=== PATIENT | male | born 1980 | race Two or more races ===

== ENCOUNTER 2024-12-17 08:02 | Emergency (ER) | payer MEDICAID, SELFPAY ==
--- NOTE | 2024-12-17 08:14 | EDNOTE_ITS ---
ED General RME/HPI General Chief complaint: Psychiatric Symptoms Stated complaint: HOLD, MENTAL EVAL Time Seen by Provider: 12/17/24 08:03 Arrival date/time: 12/17/24 08:02 RME / HPI RME / HPI narrative: Patient is 44 years old male with past medical history of previous suicidal attempts who presented to the ED after he called 911 and reported that he wants to kill himself. He did not attempt suicide or injured himself but planned to cut his wrists. Patient reports he is feeling depressed, lonely and today woke up with thoughts of hurting himself. He reports he is living with his cat and dog. He reports hearing voices, mostly of famous people in his head. He denies visual or other hallucinations. He reports episodes when he had a lot of ideas and was not able to sleep for several days. He denies any drug use, drink alcohol or smoking tobacco. Previous suicide attempt was through cutting his left wrist. Related Data Previous Rx's ?Medication ?Instructions ?Recorded hydroxyzine HCl 50 mg tablet 50 mg PO TID PRN anxiety #30 tabs 03/21/24 Allergies Allergy/AdvReac Type Severity Reaction Status Date / Time Penicillins Allergy Severe Difficulty Verified 03/21/24 16:18 Breathing Review of Systems Review of Systems Systems Reviewed: All systems reviewed, normal except as documented ED Exam Narrative Physical exam: Gen: Well-developed and well-nourished male, cooperative. HEENT: NCAT, PERRLA, EOMI, MMM, anicteric conjunctivae. CVS: normal S1 and S2. RRR. No M/R/G. Resp: CTA B/L. No rhonchi, rales, crackles or wheezing. Abd: soft, obese, non-tender, non-distended. BS+ in all 4 quadrants. MSK: Good ROM in BUE & BLE. No edema or rash. Old well-healed scar on the left wrist from prior suicide attempt. Neuro: CN II-XII grossly intact. Strength 5/5 in BUE & BLE. Alert and oriented x3. Psych: Appears depressed. Course Quality Measures none Orders Category Date Time Status 179 Psychiatric Hold NOW Care 12/17/24 08:30 Ordered Diet Regular Diet 12/17/24 Lunch Active Alcohol, Blood Medical Stat Lab 12/17/24 09:44 Completed CBC Stat Lab 12/17/24 09:44 Completed Comprehensive Metabolic Panel Stat Lab 12/17/24 09:44 Completed Drug Screen,Urine Stat Lab 12/17/24 08:52 Completed Urinalysis Stat Lab 12/17/24 08:52 Completed Vital Signs Vital signs: Vital Signs Temperature 99.0 F 12/17/24 08:17 Pulse Rate 84 12/17/24 08:17 Respiratory Rate 18 12/17/24 08:17 Blood Pressure 141/95 H 12/17/24 08:17 Pulse Oximetry (%) 96 12/17/24 08:17 Oxygen Delivery Method Room Air 12/17/24 08:17 MDM Patient data External records reviewed:: [facility] previous records and EMS form Clinical information provided by:: patient and EMS Social determinants that could affect healthcare access:: mental health Patient has the following chronic illnesses:: previous suicidal attempts How is presenting disease/condition affected by chronic disease/condition?: e xacerbated by Evaluation data The following diagnostics were reviewed and interpreted by me:: lab results Lab and/or radiology exams considered but not ordered:: CXR, EKG Interpretation Summary: no acute abnormalities Medications Medications considered but not ordered:: none Medication administrations:: none Consultations Consultation(s) initiated? (list below): No Diagnosis Differential Diagnosis ED Complaint MDM: schizophrenia, depression, bipolar disorder, drug use Most likely diagnosis given after review of the tests above:: Bipolar disorder Admission Indicated Admission indicated?: indicated Explain why admission is indicated or not indicated:: Patient is suicidal, however [facility] does not have psychiatry services, transfer was initiated. Admission Request Was there a request for admission?: No Disposition Plan Disposition Plan: Transfer Medical Decision Making MDM Narrative MDM Narrative: jmk>>> patient 44-year-old who presents with suicidal thoughts considering slicing his left wrist but did not take action. Did not take any pills or medications. Patient was medically evaluated and cleared had a normal CBC and CHEM panel and both urine and drug screens were negative. health services coordinator evaluated this patient and made arrangements to 5150 him and patient was accepted to [facility] was transferred by ambulance. Patient was called in the emergency department with no outburst. Differential Diagnosis Differential Diagnosis: schizophrenia, depression, bipolar disorder, drug use Lab Data 12/17/24 09:44 12/17/24 09:44 Labs: Lab Results 12/17/24 12/17/24 Range/Units 08:52 09:44 WBC 5.3 (3.8-10.6) Thou/mm3 RBC 4.73 (4.50-5.90) Miln/mm3 Hgb 13.8 (13.5-16.0) g/dL Hct 40.9 L (41.0-53.0) % MCV 87 (80-100) fL MCH 29.2 (25.0-35.0) pg MCHC 33.7 (31.0-37.0) g/dl RDW Std Deviation 47.8 H (35.1-43.9) fL Plt Count 252 (140-440) Thou/mm3 Neut % (Auto) 64 (37-80) % Lymph % (Auto) 24 (10-50) % Beckham % (Auto) 9 (0-12) % Eos % (Auto) 2 (0-10) % Baso % (Auto) 1 (0-2.5) % Neut # (Auto) 3.4 (1.8-7.7) Thou/mm3 Lymph # (Auto) 1.3 (1.0-4.8) Thou/mm3 Beckham # (Auto) 0.5 (0.0-0.8) Thou/mm3 Eos # (Auto) 0.1 (0.0-0.5) Thou/mm3 Baso # (Auto) 0.0 (0.0-0.2) Thou/mm3 Immature Gran # (Auto) 0.01 H (0.00-0.00) Thou/mm3 Absolute Nucleated RBC 0.00 (0.00-0.00) Thou/mm3 Immature Gran % 0 (0-0) % Nucleated RBC % 0 (0) /100 WBC Sodium 139 (136-145) mMol/L Potassium 4.5 (3.4-5.1) mMol/L Chloride 105 (98-107) mMol/L Carbon Dioxide 26.7 (20.0-31.0) mMol/L Anion Gap 7 (7-16) BUN 10 (9-23) mg/dL Creatinine 0.9 (0.6-1.3) mg/dL Estim Creat Clear Calc 136.9 (>60) mL/min eGFR > 60 (60 - ) See Note BUN/Creatinine Ratio 11 L (12-20) Ratio Glucose 97 (74-106) mg/dL Calculated Osmolality 276 (275-295) Calcium 9.2 (8.3-10.6) mg/dL Corrected Calcium 9.2 (8.5-10.1) mg/dL Total Bilirubin 0.6 (0.3-1.2) mg/dL AST 23 (0-34) U/L ALT 26 (10-49) U/L Alkaline Phosphatase 89 (46-116) U/L Total Protein 6.8 (5.7-8.2) gm/dL Albumin 4.3 (3.5-5.0) gm/dL Globulin 2.5 (2.3-3.5) gm/dL Albumin/Globulin Ratio 1.7 (1.2-2.2) Ur Collection Type Clean Catch Urine Color Colorless A (Lt Yel-Yel) Urine Clarity Clear (Clear/Hazy) Urine pH 6.5 (5.0-7.0) Ur Specific [place] 1.012 (1.001-1.035) Urine Protein Negative (Neg - Trace) Urine Glucose (UA) Negative (Negative) Urine Ketones Negative (Negative) Urine Blood Negative (Negative) Urine Nitrite Negative (Negative) Urine Bilirubin Negative (Negative) Urine Urobilinogen (Auto) Negative (0.0-1.0) mg/dL Ur Leukocyte Esterase Negative (Negative) Urine RBC < 1 (0-3) /hpf Urine WBC < 1 (0-5) /hpf Ur Squamous Epith Cells 0 (0-5) /hpf Urine Bacteria Rare (None) Urine Opiates Screen Negative (Negative) Urine Fentanyl Screen Negative (Negative) Ur Barbiturates Screen Negative (Negative) U Amphetamin/Meth Scrn Negative (Negative) U Benzodiazepines Scrn Negative (Negative) U Cocaine Metab Screen Negative (Negative) U Marijuana (THC) Screen Negative (Negative) Ethyl Alcohol < 10.0 (0-10.0) mg/dL Discharge Plan Plan Patient Disposition: [facility] Disposition Comment: [facility] Patient condition on transfer: Stable Prescriptions/Referrals Prescriptions/Med Rec: No Action hydroxyzine HCl 50 mg tablet 50 mg PO TID PRN (Reason: anxiety) Qty: 30 0RF Referrals: Justice Pham MD [Primary Care Provider] - In 1 week Problem List Clinical Impression: Suicidal ideation Patient/Caregiver Discharge Instructions Print Language: Hungarian Stand Alone Forms: Sugar Award Info., Patient Portal Info Letter MD Attestation Attestation I, Stanford Rodriguez MD, have reviewed the history, exam, and assessment of the patient. I have evaluated the patient independently and agree with the plan of care documented by [ ]. All diagnostic studies were reviewed and discussed. I confirm the diagnosis as documented by the Resident. I was present during the Medical Decision Making for this patient. The patient's plan of care was created between myself and the Resident and consistent with our discussion of the patient's case. See MDM above further details.
[2024-12-17 08:17] VITALS: BP 141/95; PULSE 84; RESP 18; TEMP 37.2; O2SAT 96
[2024-12-17 08:50] VITALS: PULSE 84; RESP 18; O2SAT 99; BMI 34.8
[2024-12-17 09:31] LABS: Collection Type, Urine Clean Catch; Squamous Epithelial Cell,Urine 0 /hpf (0-5)
[2024-12-17 09:46] LABS: Amphetamine/Methamp Scrn,U Negative (Negative); Barbiturate Screen,Urine Negative (Negative); Benzodiazepines Screen,Urine Negative (Negative); Benzoylecgonine Screen, Ur Negative (Negative); Fentanyl Screen,Urine Negative (Negative); Opiate Screen,Urine Negative (Negative); THC Screen,Urine Negative (Negative)
[2024-12-17 10:00] LABS: Basophils % (Auto) 1 % (0-2.5); Eosinophils # (Auto) 0.1 Thou/mm3 (0.0-0.5); Eosinophils % (Auto) 2 % (0-10); Hematocrit 40.9 % (41.0-53.0); Hemoglobin 13.8 g/dL (13.5-16.0); Immature Granulocytes % (Auto) 0 % (0-0); Immature Granulocytes Auto 0.01 Thou/mm3 (0.00-0.00); Lymphocytes # (Auto) 1.3 Thou/mm3 (1.0-4.8); Lymphocytes % (Auto) 24 % (10-50); Mean Corpuscular HGB Conc 33.7 g/dl (31.0-37.0); Mean Corpuscular Hemoglobin 29.2 pg (25.0-35.0); Mean Corpuscular Volume 87 fL (80-100); Monocytes # (Auto) 0.5 Thou/mm3 (0.0-0.8); Monocytes % (Auto) 9 % (0-12); Neutrophils # (Auto) 3.4 Thou/mm3 (1.8-7.7); Neutrophils % (Auto) 64 % (37-80); Nucleated Red Blood Cell % 0 /100 WBC (0); Platelet Count 252 Thou/mm3 (140-440); RDW Standard Deviation 47.8 fL (35.1-43.9); Red Blood Count 4.73 Miln/mm3 (4.50-5.90); White Blood Count 5.3 Thou/mm3 (3.8-10.6)
[2024-12-17 10:24] LABS: Alanine Aminotransferase 26 U/L (10-49); Albumin, Serum 4.3 gm/dL (3.5-5.0); Albumin/Globulin Ratio 1.7 (1.2-2.2); Alcohol, Blood Medical < 10.0 mg/dL (0-10.0); Alkaline Phosphatase 89 U/L (46-116); Anion Gap 7 (7-16); Aspartate Amino Transferase 23 U/L (0-34); BUN/Creatinine Ratio 11 Ratio (12-20); Bilirubin,Total 0.6 mg/dL (0.3-1.2); Blood Urea Nitrogen 10 mg/dL (9-23); Calcium 9.2 mg/dL (8.3-10.6); Calcium (Corrected) 9.2 mg/dL (8.5-10.1); Carbon Dioxide 26.7 mMol/L (20.0-31.0); Chloride 105 mMol/L (98-107); Creatinine (Component) 0.9 mg/dL (0.6-1.3); Estimated Creatinine Clearance 136.9 mL/min (>60); Globulin 2.5 gm/dL (2.3-3.5); Glucose 97 mg/dL (74-106); Osmolality,Calculated 276 (275-295); Potassium 4.5 mMol/L (3.4-5.1); Sodium 139 mMol/L (136-145); Total Protein 6.8 gm/dL (5.7-8.2); eGFR > 60 See Note
[2024-12-17 12:00] VITALS: BP 156/81; PULSE 89; RESP 16; TEMP 37.1; O2SAT 99
--- NOTE | 2024-12-17 12:05 | PC.CC ---
Pt Alexis Hyde, is a 44-year-old male brought in to ED by EMS on a 5150 DTS hold placed by [employer]. Shampooer met with pt to complete Mental Heal Evaluation. Pt presents well-groomed but disheveled. Pt easily engaged and was able to sit up on gurney and make direct eye contact as encounter progressed. Pt is noted to be alert and oriented to person, current place and year. Pt reports hx of mental health. Pt reports is no longer receiving with therapeutic services. Pt denies reports previous 5150 hold and psych placement x2 years ago. Pt placed in ED 6. Pt reports living alone at [facility] [address] [place], [place] [id number]. ED Field Training Agent encountered Pt for mental health evaluation. ED Field Training Agent used the following interventions: empathy, unconditional positive regard, Socratic dialogue including clarifying and probing questions. Pt was receptive and was able to disclosed frustration and unhappiness with life. Pt reported he had an interrupted SI attempt. ED Field Training Agent used C-SSRS to support process and assessed for SI/HI, self-harming behaviors, method, access to lethal means, plan/intent. Pt was responsive to mental health evaluation and endorsed plan/intent for SI/HI. Pt reported hx of non-suicidal self-injury. ED Field Training Agent consulted with supervisor pigment making Devora Costa and it was agreed keep Pt in a 5150 hold-DTS SI/HI with plan/intent. Pt was engaged and assessed as reliable participant.
--- NOTE | 2024-12-17 12:11 | PC.CC ---
ED Etymology Professor completed 5150 placement packet and it was sent to all adult accepting LPS facilities.
[2024-12-17 12:24] LABS: Bacteria,Urine Rare; Bilirubin,Urine Negative (Negative); Blood,Urine Negative (Negative); Clarity,Urine Clear (Clear/Hazy); Color,Urine Colorless (Lt Yel-Yel); Glucose, Urine Negative (Negative); Ketones,Urine Negative (Negative); Leukocyte Esterase,Urine Negative (Negative); Nitrite,Urine Negative (Negative); PH,Urine 6.5 (5.0-7.0); Protein,Urine Negative (Neg - Trace); RBC,Urine < 1 /hpf (0-3); Specific Gravity,Urine 1.012 (1.001-1.035); Urobilinogen,Urine Negative mg/dL (0.0-1.0); WBC,Urine < 1 /hpf (0-5)
--- NOTE | 2024-12-17 12:26 | PC.CC ---
Fishing Accessories Maker received acceptance for Pt at [facility] with Dr. Lynch to unit Leti. MARYANNE MUKUND. Nurse to Nurse [phone].
--- NOTE | 2024-12-17 13:01 | PC.SS ---
SS set up transportation with [place] [facility] for 1500. SS notified patient's nurse, Kleber.
[2024-12-17 14:15] VITALS: BP 145/87; PULSE 74; RESP 17; TEMP 37.1; O2SAT 97
== END 2024-12-17 15:18 ==
PROVIDERS: Student in an Organized Health Care Education/Training Program; Emergency Provider Emergency Medicine; PCP Family Medicine
DX: R45.851 Suicidal ideations (principal)
CPT/HCPCS: 36415; 80053; 80307; 80320; 81001; 85025; 90839; 96127; 99285; G0480